=== PATIENT | male | born 1955 | race Caucasian/White ===

== ENCOUNTER 2018-10-27 15:23 | Inpatient (IN) | payer OTHER ==
[2018-10-27 16:50] VITALS: BMI 32.8
--- NOTE | 2018-10-27 17:32 | HP ---
CIWA Score Nausea/Vomitin-No Nausea/No Vomiting Muscle Tremors: 7-Severe,w/o Arm Extended Anxiety: 5 Agitation: 1-Slight > Activity Paroxysmal Sweats: No Perspiration Orientation: 0-Oriented Tacttile Disturbances: 0-None Auditory Disturbances: 1-Very Mild Visual Disturbances: 2-Mild Sensitivity Headache: 0-None Present CIWA-Ar Total Score: 16 - Admission Criteria [facility] Guidelines: Admission for Medically Managed Detox: Requires at least one of the followin. CIWA greater than 12 2. Seizures within the past 24 hours 3. Delirium tremens within the past 24 hours 4. Hallucinations within the past 24 hours 5. Acute intervention needed for co occurring medical disorder 6. Acute intervention needed for co occurring psychiatric disorder 7. Severe withdrawal that cannot be handled at a lower level of care (continued vomiting, continued diarrhea, abnormal vital signs) requiring intravenous medication and/or fluids 8. Patient presents the following: CIWA greater than 12 Admission Criteria Met: Admission criteria met Admission ROS [facility] Allergies/Adverse Reactions: Allergies Allergy/AdvReac Type Severity Reaction Status Date / Time No Known Allergies Allergy Verified 10/27/18 17:06 History of Present Illness: patient reports binge-drinking x 5 days , prior use Thanksgiving , reports 1 x / year , latest use last night , current symptoms as above . Denies seizures, + blackouts, +tremors , denies falls while intoxicated , prior detox 4 years ago forgot where . DWI 15 years ago , reports he starts drinking upon awakening , usually vodka " as much as I can put in my face " generally 750 ml / day .Patient is very irritable and anxious, poor historian due to intoxication and current condition. Upon further questioning during the exam , patient states he had a fall at home 1 week ago w/ superficial " scrape " to head , denies LOC . Pmhx : HDL , chronic back pain , PSHx : mitral valve repair 2005 , alphonse 1-5 years ago ( does not recall date ) , left hip > 5 years ago , r inguinal hernia , vasectomy , eye surgery Psych : anxiety Denies illicits , admits to rx meds as below not daily use tobacco : denies This report was requested by: Clover Zamudio | Reference #: [id number] Others' Prescriptions Patient Name: Sabas Lyn Date: 1955 Address: [place] [address] Sex: Male Rx Written Rx Dispensed Drug Quantity Days Supply Prescriber Name 10/07/2018 10/09/2018 clonazepam 1 mg tablet 60 30 Brandon, Julia 09/25/2018 09/26/2018 oxycodone-acetaminophen 5-325 mg tablet 90 30 Wood, Manny Stearnsu 09/04/2018 09/04/2018 clonazepam 1 mg tablet 60 30 Brandon, Julia 08/27/2018 08/28/2018 oxycodone-acetaminophen 5-325 mg tablet 90 30 WoodMannyu 08/05/2018 08/05/2018 clonazepam 1 mg tablet 60 30 Brandon, Julia 07/28/2018 07/29/2018 oxycodone-acetaminophen 5-325 mg tablet 90 30 WoodMannyu 07/07/2018 07/09/2018 clonazepam 1 mg tablet 60 30 Brandon, Julia 06/29/2018 06/29/2018 oxycodone-acetaminophen 5-325 mg tablet 90 30 WoodMannyu 06/04/2018 06/05/2018 clonazepam 1 mg tablet 60 30 Brandon, Julia 05/26/2018 05/26/2018 oxycodone-acetaminophen 5-325 mg tablet 90 30 WoodMannyu 05/06/2018 05/06/2018 clonazepam 1 mg tablet 60 30 Brandon, Julia 04/25/2018 04/25/2018 oxycodone-acetaminophen 5-325 mg tablet 90 30 WoodMannyu 04/13/2018 04/13/2018 oxycodone-acetaminophen 5-325 mg tablet 45 15 WoodMannyu 04/01/2018 04/02/2018 clonazepam 1 mg tablet 60 30 Brandon, Julia 03/28/2018 03/28/2018 oxycodone-acetaminophen 5-325 mg tablet 45 15 WoodMannyu 03/14/2018 03/14/2018 oxycodone-acetaminophen 5-325 mg tablet 30 15 WoodMannyu 03/01/2018 03/03/2018 clonazepam 1 mg tablet 60 30 Brandon, Julia 03/01/2018 03/01/2018 clonazepam 1 mg tablet 5 2 MarixaAlexia MD 02/28/2018 02/28/2018 oxycodone-acetaminophen 5-325 mg tablet 30 15 Manny Wood 02/13/2018 02/13/2018 oxycodone-acetaminophen 5-325 mg tablet 30 15 Manny Wood 01/30/2018 01/30/2018 clonazepam 1 mg tablet 60 30 Brandon, Julia 01/30/2018 01/30/2018 oxycodone-acetaminophen 5-325 mg tablet 30 15 Manny Wood 01/20/2018 01/20/2018 oxycodone-acetaminophen 5-325 mg tablet 30 15 Manny Wood 01/05/2018 01/05/2018 oxycodone-acetaminophen 5-325 mg tablet 30 15 Manny Wood 12/30/2017 12/31/2017 clonazepam 1 mg tablet 60 30 BrandonJulia 12/23/2017 12/23/2017 oxycodone-acetaminophen 5-325 mg tablet 30 15 Manny Wood 12/06/2017 12/06/2017 oxycodone-acetaminophen 5-325 mg tablet 30 15 Manny Wood MD 11/27/2017 11/27/2017 tramadol hcl 50 mg tablet 30 10 WoodManny MD 11/14/2017 11/18/2017 clonazepam 1 mg tablet 60 30 BrandonJulia 11/06/2017 11/07/2017 oxycodone-acetaminophen 5-325 mg tab 14 7 BrandonJulia rai 10/29/2017 10/31/2017 oxycodone-acetaminophen 5-325 mg tab 14 7 BrandonJulia 10/29/2017 10/29/2017 oxycodone-acetaminophen 5-325 mg tab 14 7 Julia Taylor * - Drugs marked with an asterisk are compound drugs. If the compound drug is made up of more than one controlled substance, then each controlled substance will be a separate row in the table. Click the Report Suspicious Activity button to report information related to controlled substance suspicious activity to the [employer]. Click the Send Questions/Comments button to send questions about this report to the [employer], or call . Click the Substance Abuse Treatment Information button to go to the Office of Alcoholism and Substance Abuse Services website, www.oasas.[place].gov or call 1- 203.126.5593. Exam Limitations: Clinical Condition, Intoxication - Ebola screening Have you traveled outside of the country in the last 21 days: No Have you had contact with anyone from an Ebola affected area: No Have you been sick,other than usual withdrawal symptoms: No - Review of Systems Constitutional: See HPI EENT: reports: Other (denies dysphagia) Respiratory: reports: No Symptoms reported Cardiac: reports: No Symptoms Reported GI: reports: See HPI, Nausea : reports: No Symptoms Reported Musculoskeletal: reports: Back Pain Integumentary: reports: No Symptoms Reported Neuro: reports: See HPI Endocrine: reports: No Symptoms Reported Psychiatric: reports: Orientated x3, Agitated, Anxious Patient History - Patient Medical History Hx Asthma: No Hx Chronic Obstructive Pulmonary Disease (COPD): No Hx Cardiac Disorders: Yes (Pt had a mitral valve repair) Hx Hypertension: No Hx Seizures: No Hx Diabetes: No Hx Gastrointestinal Disorders: No Hx Genitourinary Disorders: No Hx Sexually Transmitted Disorders: No Hx Renal Disease (ESRD): No Hx Depression: No Hx Suicide Attempt: No Hx Schizophrenia: No - Patient Surgical History Past Surgical History: Yes Hx Cardiac Surgery: Yes (mitral valve repair) Hx Cholecystectomy: Yes Other Surgical History: Hernia repair/ vasectomy / R hip replacement - PPD History Previous Implant?: No - Smoking Cessation Smoking history: Current every day smoker Have you smoked in the past 12 months: No Hx Chewing Tobacco Use: No Initiated information on smoking cessation: No - Substances Abused Alcohol Route: Oral Frequency: Daily Amount used: 1/2 gallon Age of first use: 16 Date of Last Use: 10/27/18 Family Disease History - Family Disease History Family History: Denies Admission Physical Exam BHS - Vital Signs Vital Signs: Vital Signs - 24 hr 10/27/18 16:48 Temperature 100.4 F H Pulse Rate 117 H Respiratory 18 Rate Blood Pressure 148/93 - Physical General Appearance: Yes: Severe Distress, Alcohol on Breath, Intoxicated, Irritable HEENTM: Yes: EOMI, Hearing grossly Normal, Normocephalic, Normal Voice, Other ( abrasions on scalp) Respiratory: Yes: Chest Non-Tender, Lungs Clear, Normal Breath Sounds Neck: Yes: No masses,lesions,Nodules, Trachea in good position Cardiology: Yes: Regular Rhythm, Regular Rate, S1, S2, Tachycardia Abdominal: Yes: Normal Bowel Sounds, Non Tender, Soft Genitourinary: Yes: Within Normal Limits Back: Yes: Normal Inspection Musculoskeletal: Yes: Back pain (chronic), Other (staggering gait) Extremities: Yes: Normal Capillary Refill, Non-Tender, Tremors Neurological: Yes: Alert, Motor Strength 5/5, Finger to Nose (cannot do 2/2 intoxication) Integumentary: Yes: Other (scalp abrasions , superficial petechiae butch hands) - Diagnostic (1) Alcohol intoxication Current Visit: Yes Status: Acute Qualifiers: Complication of substance-induced condition: with unspecified complication Qualified Code(s): F10.929 - Alcohol use, unspecified with intoxication, unspecified BHS Breath Alcohol Content Breath Alcohol Content: 0.266 Urine Drug Screen - Results Drug Screen Negative: No Urine Drug Screen Results: BZO-Benzodiazepines Inpatient Rehab Admission - Rehab Decision to Admit Inpatient rehab admission?: No
[2018-10-27] MEDS ORDERED: MAGNESIUM CITRATE 300 ML BOTTLE PO PRN (17:38)
[2018-10-27] MEDS ORDERED: MAGNESIUM HYDROX 2400MG/30ML ORAL SUSPENSION 30 ML CUP PO PRN (17:38)
[2018-10-27] MEDS ORDERED: MENTHOL/PHENOL 1 EACH UD MM PRN (17:38)
[2018-10-27] MEDS ORDERED: IBUPROFEN 400 MG TABLET (FP) PO PRN (17:38)
[2018-10-27] MEDS ORDERED: MAG HYDROX/AL HYDROX/SIMETH 30 ML UNIT-DOSE CUP PO PRN (17:38)
[2018-10-27] MEDS ORDERED: ACETAMINOPHEN 325 MG TABLET (FP) PO PRN (17:38)
[2018-10-27] MEDS ORDERED: chlordiazePOXIDE HCL 25 MG CAPSULE PO ONE (19:00)
[2018-10-27] MEDS: chlordiazePOXIDE HCL 25 MG CAPSULE PO PRN (20:16)
[2018-10-27] MEDS: cloNIDine HCL 0.1 MG TABLET PO PRN (20:35)
[2018-10-27] MEDS ORDERED: METOPROLOL TARTRATE 25 MG TABLET (FP) PO ONE (21:30)
[2018-10-27] MEDS: THIAMINE HCL 100 MG TABLET (FP) PO SCH (22:06)
[2018-10-27] MEDS: chlordiazePOXIDE HCL 25 MG CAPSULE PO SCH (22:07)
[2018-10-27] MEDS: MELATONIN 5 MG TABLETS PO PRN (22:07)
[2018-10-28] MEDS: chlordiazePOXIDE HCL 25 MG CAPSULE PO PRN ×4 (00:27→21:49)
[2018-10-28] MEDS ORDERED: hydrOXYzine PAMOATE 25 MG CAPSULE (FP) PO ONE (03:21)
[2018-10-28] MEDS: cloNIDine HCL 0.1 MG TABLET PO PRN ×2 (06:00→17:57)
[2018-10-28] MEDS: chlordiazePOXIDE HCL 25 MG CAPSULE PO SCH ×4 (06:00→22:36)
[2018-10-28] MEDS: PRENATAL VITAMINS W/ FOLIC ACID TABLET (FP) PO SCH (09:44)
[2018-10-28 10:41] LABS: HEMATOCRIT 38.6 % (35.4-49); HEMOGLOBIN 13.4 GM/dL (11.7-16.9); MCH 31.4 pg (25.7-33.7); MCHC 34.6 g/dl (32.0-35.9); MEAN CELL VOLUME 90.9 fl (80-96); MEAN PLT VOLUME 7.1 fl (7.5-11.1); PLATELET COUNT 93 K/MM3 (134-434); RBC 4.25 M/mm3 (4.00-5.60); RDW 16.3 % (11.9-15.9); WHITE BLOOD COUNT 4.4 K/mm3 (4.0-10.0)
[2018-10-28 10:48] LABS: ALBUMIN 3.6 g/dl (3.4-5.0); ALK PHOS 58 U/L (45-117); ANION GAP 8 MMOL/L (8-16); BLOOD UREA NITROGEN 12 mg/dL (7-18); CALCIUM 8.6 mg/dL (8.5-10.1); CHLORIDE 93 mmol/L (98-107); CO2 34 mmol/L (21-32); GLUCOSE,RANDOM 128 mg/dL (74-106); POTASSIUM 3.2 mmol/L (3.5-5.1); SGOT/AST 97 U/L (15-37); SGPT/ALT 54 U/L (13-61); SODIUM 136 mmol/L (136-145); TOT PROT 6.5 g/dl (6.4-8.2)
--- NOTE | 2018-10-28 12:40 | PN ---
[facility] CIWA - CIWA Score Nausea/Vomitin-Mild Nausea/No Vomiting Muscle Tremors: 4-Moderate,w/Arms Extend Anxiety: 2 Agitation: 2 Paroxysmal Sweats: 1-Minimal Palms Moist Orientation: 1-Uncertain about Date Tacttile Disturbances: 0-None Auditory Disturbances: 0-None Visual Disturbances: 0-None Headache: 1-Very Mild CIWA-Ar Total Score: 12 S Progress Note (SOAP) Subjective: tremor sweating anxiety gi distress heart burn Objective: 10/28/18 12:40 Vital Signs Temperature 97 F L 10/28/18 09:12 Pulse Rate 92 H 10/28/18 11:30 Respiratory Rate 20 10/28/18 11:30 Blood Pressure 133/86 10/28/18 09:12 O2 Sat by Pulse Oximetry (%) Laboratory Last Values WBC 4.4 K/mm3 (4.0-10.0) 10/28/18 07:00 RBC 4.25 M/mm3 (4.00-5.60) 10/28/18 07:00 Hgb 13.4 GM/dL (11.7-16.9) 10/28/18 07:00 Hct 38.6 % (35.4-49) 10/28/18 07:00 MCV 90.9 fl (80-96) 10/28/18 07:00 MCH 31.4 pg (25.7-33.7) 10/28/18 07:00 MCHC 34.6 g/dl (32.0-35.9) 10/28/18 07:00 RDW 16.3 % (11.9-15.9) H 10/28/18 07:00 Plt Count 93 K/MM3 (134-434) L 10/28/18 07:00 MPV 7.1 fl (7.5-11.1) L 10/28/18 07:00 Sodium 136 mmol/L (136-145) 10/28/18 07:00 Potassium 3.2 mmol/L (3.5-5.1) L 10/28/18 07:00 Chloride 93 mmol/L (98-107) L 10/28/18 07:00 Carbon Dioxide 34 mmol/L (21-32) H 10/28/18 07:00 Anion Gap 8 MMOL/L (8-16) 10/28/18 07:00 BUN 12 mg/dL (7-18) 10/28/18 07:00 Creatinine 1.0 mg/dL (0.55-1.3) 10/28/18 07:00 Creat Clearance w eGFR > 60 (>60) 10/28/18 07:00 Random Glucose 128 mg/dL (74-106) H 10/28/18 07:00 Calcium 8.6 mg/dL (8.5-10.1) 10/28/18 07:00 Total Bilirubin 2.0 mg/dL (0.2-1) H 10/28/18 07:00 AST 97 U/L (15-37) H 10/28/18 07:00 ALT 54 U/L (13-61) 10/28/18 07:00 Alkaline Phosphatase 58 U/L (45-117) 10/28/18 07:00 Total Protein 6.5 g/dl (6.4-8.2) 10/28/18 07:00 Albumin 3.6 g/dl (3.4-5.0) 10/28/18 07:00 lab noted low K+ Assessment: 10/28/18 12:45 withdrawal sx Plan: continue detox
[2018-10-28] MEDS: POTASSIUM CHLORIDE TABS 20 MEQ TABLET.ER (FP) PO SCH ×2 (13:13→21:49)
[2018-10-28] MEDS: RANITIDINE HCL 150 MG TABLET (FP) PO SCH ×2 (13:13→21:49)
[2018-10-28] MEDS ORDERED: hydrOXYzine PAMOATE 50 MG CAPSULE (FP) PO PRN (21:47)
[2018-10-28] MEDS: THIAMINE HCL 100 MG TABLET (FP) PO SCH (21:49)
[2018-10-29] MEDS: chlordiazePOXIDE HCL 25 MG CAPSULE PO SCH ×3 (05:50→17:38)
[2018-10-29] MEDS: RANITIDINE HCL 150 MG TABLET (FP) PO SCH ×2 (10:35→22:45)
[2018-10-29] MEDS: PRENATAL VITAMINS W/ FOLIC ACID TABLET (FP) PO SCH (10:35)
[2018-10-29] MEDS: POTASSIUM CHLORIDE TABS 20 MEQ TABLET.ER (FP) PO SCH ×4 (10:35→22:40)
[2018-10-29] MEDS: chlordiazePOXIDE HCL 25 MG CAPSULE PO PRN (12:07)
--- NOTE | 2018-10-29 14:21 | PN ---
[facility] CIWA - CIWA Score Nausea/Vomitin-Mild Nausea/No Vomiting Muscle Tremors: 3 Anxiety: 2 Agitation: 1-Slight > Activity Paroxysmal Sweats: 1-Minimal Palms Moist Orientation: 1-Uncertain about Date Tacttile Disturbances: 0-None Auditory Disturbances: 0-None Visual Disturbances: 0-None Headache: 1-Very Mild CIWA-Ar Total Score: 10 S Progress Note (SOAP) Subjective: tremor sweating otherwise doing ok social with peers in day room Objective: 10/29/18 14:22 Vital Signs Temperature 97.8 F 10/29/18 13:59 Pulse Rate 74 10/29/18 13:59 Respiratory Rate 20 10/29/18 13:59 Blood Pressure 136/78 10/29/18 13:59 O2 Sat by Pulse Oximetry (%) Laboratory Last Values WBC 4.4 K/mm3 (4.0-10.0) 10/28/18 07:00 RBC 4.25 M/mm3 (4.00-5.60) 10/28/18 07:00 Hgb 13.4 GM/dL (11.7-16.9) 10/28/18 07:00 Hct 38.6 % (35.4-49) 10/28/18 07:00 MCV 90.9 fl (80-96) 10/28/18 07:00 MCH 31.4 pg (25.7-33.7) 10/28/18 07:00 MCHC 34.6 g/dl (32.0-35.9) 10/28/18 07:00 RDW 16.3 % (11.9-15.9) H 10/28/18 07:00 Plt Count 93 K/MM3 (134-434) L 10/28/18 07:00 MPV 7.1 fl (7.5-11.1) L 10/28/18 07:00 Sodium 136 mmol/L (136-145) 10/28/18 07:00 Potassium 3.0 mmol/L (3.5-5.1) L 10/29/18 07:00 Chloride 93 mmol/L (98-107) L 10/28/18 07:00 Carbon Dioxide 34 mmol/L (21-32) H 10/28/18 07:00 Anion Gap 8 MMOL/L (8-16) 10/28/18 07:00 BUN 12 mg/dL (7-18) 10/28/18 07:00 Creatinine 1.0 mg/dL (0.55-1.3) 10/28/18 07:00 Creat Clearance w eGFR > 60 (>60) 10/28/18 07:00 Random Glucose 128 mg/dL (74-106) H 10/28/18 07:00 Calcium 8.6 mg/dL (8.5-10.1) 10/28/18 07:00 Total Bilirubin 2.0 mg/dL (0.2-1) H 10/28/18 07:00 AST 73 U/L (15-37) H 10/29/18 07:00 ALT 54 U/L (13-61) 10/28/18 07:00 Alkaline Phosphatase 58 U/L (45-117) 10/28/18 07:00 Total Protein 6.5 g/dl (6.4-8.2) 10/28/18 07:00 Albumin 3.6 g/dl (3.4-5.0) 10/28/18 07:00 RPR Titer Nonreactive (NONREACTIVE) 10/28/18 07:00 lab noted low K+ Assessment: 10/29/18 14:27 withdrawal sx patient had K+ 3.2 treated with potassium supplement 20 meq bid result os K+ today 3.0 discontinue potassium 20 meq supplement bid begin potassium 40 meq x 2 doses today repeat K+ 10/30/18 Plan: continue detox
[2018-10-29] MEDS: chlordiazePOXIDE 5 MG CAPSULE PO SCH (22:41)
[2018-10-29] MEDS: THIAMINE HCL 100 MG TABLET (FP) PO SCH (22:42)
[2018-10-29] MEDS: MELATONIN 5 MG TABLETS PO PRN (22:45)
[2018-10-30] MEDS: chlordiazePOXIDE 5 MG CAPSULE PO SCH ×3 (05:28→17:51)
[2018-10-30] MEDS: RANITIDINE HCL 150 MG TABLET (FP) PO SCH ×2 (10:36→22:09)
[2018-10-30] MEDS: PRENATAL VITAMINS W/ FOLIC ACID TABLET (FP) PO SCH (10:36)
[2018-10-30] MEDS: chlordiazePOXIDE HCL 25 MG CAPSULE PO PRN (12:27)
--- NOTE | 2018-10-30 14:44 | PN ---
S Progress Note (SOAP) Subjective: Diarrhea, Body Aches. Objective: PATIENT A & O X 3, OBSERVED AMBULATING ON UNIT. IN NO ACUTE DISTRESS. 10/30/18 14:38 Vital Signs Temperature 98.0 F 10/30/18 13:13 Pulse Rate 108 H 10/30/18 13:13 Respiratory Rate 20 10/30/18 13:13 Blood Pressure 131/97 10/30/18 13:13 O2 Sat by Pulse Oximetry (%) Laboratory Tests 10/28/18 10/28/18 10/28/18 07:00 07:00 07:00 WBC 4.4 RBC 4.25 Hgb 13.4 Hct 38.6 MCV 90.9 MCH 31.4 MCHC 34.6 RDW 16.3 H Plt Count 93 L MPV 7.1 L Sodium 136 Potassium 3.2 L Chloride 93 L Carbon Dioxide 34 H Anion Gap 8 BUN 12 Creatinine 1.0 Creat Clearance w eGFR > 60 Random Glucose 128 H Calcium 8.6 Total Bilirubin 2.0 H AST 97 H ALT 54 Alkaline Phosphatase 58 Total Protein 6.5 Albumin 3.6 RPR Titer Nonreactive 10/29/18 10/30/18 07:00 07:00 WBC RBC Hgb Hct MCV MCH MCHC RDW Plt Count MPV Sodium Potassium 3.0 L 3.7 Chloride Carbon Dioxide Anion Gap BUN Creatinine Creat Clearance w eGFR Random Glucose Calcium Total Bilirubin AST 73 H ALT Alkaline Phosphatase Total Protein Albumin RPR Titer LABS NOTED. RESULT OF REPEAT K LEVEL NOTED. K LEVEL NOW NOTED TO BE WITH NORMAL LIMITS. RESULT OF REPEAT AST FROM 10/29/2018 NOTED. MODERATE REDUCTION IN LEVEL NOTED. 10/30/18 14:43 Assessment: 10/30/18 14:39 WITHDRAWAL SYMPTOMS. ELEVATED LIVER ENZYMES. THROMBOCYTOPENIA. 10/30/18 14:40 Plan: CONTINUE DETOX. INCREASE DAILY PO FLUID INTAKE. PATIENT REPORTS THAT HE IS CONTEMPLATING LEAVING DETOX UNIT TODAY (AMA). DUE TO LINGERING WITHDRAWAL SYMPTOMS. PATIENT ADVISED TO REMAIN ON DETOX UNIT TO COMPLETE FULL DETOX REGIMEN UNTIL TOMORROW, 10/31/2018. COPIES OF ALL LABS DRAWN WHILE ADMITTED TO DETOX WILL BE GIVEN TO PATIENT AT TIME OF DISCHARGE FROM DETOX UNIT SO THAT HE MAY TAKE THEM BACK TO HIS PCP ( [facility], [place]) AFTER DISCHARGE FROM DETOX FOR FURTHER EVALUATION.
[2018-10-30] MEDS: POTASSIUM CHLORIDE TABS 20 MEQ TABLET.ER (FP) PO SCH ×2 (17:50→22:09)
[2018-10-30] MEDS: chlordiazePOXIDE HCL 10 MG CAPSULE PO SCH (22:09)
[2018-10-30] MEDS: cloNIDine HCL 0.1 MG TABLET PO PRN (22:09)
[2018-10-30] MEDS: THIAMINE HCL 100 MG TABLET (FP) PO SCH (22:09)
[2018-10-30] MEDS: MELATONIN 5 MG TABLETS PO PRN (22:10)
[2018-10-31] MEDS: chlordiazePOXIDE HCL 10 MG CAPSULE PO SCH (06:02)
[2018-10-31 09:44] VITALS: BP 123/87; PULSE 95; TEMP 97.4
--- NOTE | 2018-10-31 16:18 | DS ---
[facility] Detox Discharge Summary Admission Date: 10/27/18 Discharge Date: 10/31/18 - History Present History: Alcohol Dependence Additional Comments: PATIENT WILL REFERRED TO [facility] ( [place], [place]) FOR AFTERCARE. PATIENT ALSO ADVISED TO FOLLOW-UP WITH DIRECTOR HRIS AT [facility] AFTER DISCHARGE FROM DETOX UNIT FOR LOW K AND PLATELET LEVELS AND FOR ELEVATED AST AND TOTAL BILIRUBIN LEVELS NOTED WHILE ADMITTED FOR DETOX. PATIENT VERBALIZED UNDERSTANDING OF RECOMMENDATION. COPIES OF ALL LABS DRAWN WHILE ADMITTED FOR DETOX GIVEN TO PATIENT AT TIME OF DISCHARGE FROM DETOX UNIT. PATIENT WAS DISCHARGED FROM DETOX UNIT IN STABLE MEDICAL CONDITION. Pertinent Past History: History of Mitral Valve Repair, Elevated Liver Enzymes, Hypokalemia, Thrombocytopenia, Hyperbilirubinemia. - Physical Exam Results Vital Signs: Vital Signs Temperature 97.4 F L 10/31/18 09:43 Pulse Rate 95 H 10/31/18 09:43 Respiratory Rate 20 10/31/18 09:43 Blood Pressure 123/87 10/31/18 09:43 O2 Sat by Pulse Oximetry (%) Pertinent Admission Physical Exam Findings: WITHDRAWAL SYMPTOMS. Laboratory Tests 10/28/18 10/28/18 10/28/18 07:00 07:00 07:00 WBC 4.4 RBC 4.25 Hgb 13.4 Hct 38.6 MCV 90.9 MCH 31.4 MCHC 34.6 RDW 16.3 H Plt Count 93 L MPV 7.1 L Sodium 136 Potassium 3.2 L Chloride 93 L Carbon Dioxide 34 H Anion Gap 8 BUN 12 Creatinine 1.0 Creat Clearance w eGFR > 60 Random Glucose 128 H Calcium 8.6 Total Bilirubin 2.0 H AST 97 H ALT 54 Alkaline Phosphatase 58 Total Protein 6.5 Albumin 3.6 RPR Titer Nonreactive 10/29/18 10/30/18 07:00 07:00 WBC RBC Hgb Hct MCV MCH MCHC RDW Plt Count MPV Sodium Potassium 3.0 L 3.7 Chloride Carbon Dioxide Anion Gap BUN Creatinine Creat Clearance w eGFR Random Glucose Calcium Total Bilirubin AST 73 H ALT Alkaline Phosphatase Total Protein Albumin RPR Titer LABS NOTED. - Treatment Hospital Course: Detox Protocol Followed, Detoxed Safely, Responded well, Discharged Condition Good Patient has Accepted a Rehab Referral to: [facility] ([place], [place]). - Medication Discharge Medications: Ambulatory Orders Clonazepam [Klonopin] 1 mg PO BID PRN 10/27/18 Lovastatin 40 mg PO DAILY 10/27/18 - Diagnosis (1) Alcohol intoxication Status: Acute Qualifiers: Complication of substance-induced condition: with unspecified complication Qualified Code(s): F10.929 - Alcohol use, unspecified with intoxication, unspecified - AMA Did Patient Leave Against Medical Advice: No
== END 2018-10-31 09:30 | disposition home or self-care (01) | DRG 897 ==
LOC: YASAS 15:23 → Y3N 17:40
PROVIDERS: ADMIT Surgery; ATTEND Surgery
PROC: HZ2ZZZZ Detoxification Services for Substance Abuse Treatment (ICD-10-PCS; principal; 2018-10-27)
DX: F10.230 Alcohol dependence with withdrawal, uncomplicated (principal); F10.220 Alcohol dependence with intoxication, uncomplicated; R00.0 Tachycardia, unspecified; R94.5 Abnormal results of liver function studies; D69.6 Thrombocytopenia, unspecified
CPT/HCPCS: 36415; 80053; 84132; 84450; 85027; 86593; J0735